=== PATIENT | male | born 2000 | race Two or more races ===

== ENCOUNTER 2019-11-13 20:54 | Emergency (ER) | payer OTHER ==
[~2019-11-13] VITALS: Ht 167.6 cm; Wt 60.3 kg
[2019-11-13] MEDS ORDERED: FLUORESCEIN SODIUM 1 MG STRIP ONE (21:59)
[2019-11-13] MEDS ORDERED: TETRACAINE HCL 0.5% OPHT DROP 2 ML BOTTLE ONE (21:59)
[2019-11-13] MEDS ORDERED: TETRACAINE HCL 0.5% OPHT DROP 2 ML BOTTLE OP ONE (22:00)
[2019-11-13] MEDS ORDERED: FLUORESCEIN SODIUM 1 MG STRIP OP ONE (22:00)
[2019-11-13] MEDS ORDERED: ERYTHROMYCIN 0.5% OPHT OINT 3.5 GM TUBE OP ONE (22:15)
[2019-11-13] MEDS ORDERED: AMOXICILLIN-CLAVUL 875-125MG TABLET PO ONE (22:15)
[2019-11-13] MEDS ORDERED: AMOXICILLIN-CLAVUL 875-125MG TABLET ONE (22:16)
[2019-11-13] MEDS ORDERED: ERYTHROMYCIN 0.5% OPHT OINT 3.5 GM TUBE ONE (22:17)
[2019-11-13] MEDS ORDERED: IBUPROFEN 800 MG TABLET ONE (22:41)
[2019-11-13] MEDS ORDERED: IBUPROFEN 800 MG TABLET PO ONE (22:45)
--- NOTE | 2019-11-13 22:45 | NUR ---
Patient discharged to home in stable conditon. Written and verbal after care instructions given. Patient verbalizes understanding of instructions. Walked out of ER with no distress noted.
[2019-11-13 22:46] VITALS: BP 144/78
== END 2019-11-13 22:48 | disposition home or self-care (01) ==
LOC: ER 20:58
DX: S05.01XA Injury of conjunctiva and corneal abrasion without foreign body, right eye, initial encounter (principal); X58.XXXA Exposure to other specified factors, initial encounter; Y93.89 Activity, other specified; Y92.89 Other specified places as the place of occurrence of the external cause; Y99.8 Other external cause status
CPT/HCPCS: A4663